=== PATIENT | male | born 1965 | race Caucasian/White ===

== ENCOUNTER 2022-11-25 08:48 | Emergency (ER) | payer OTHER, SELFPAY ==
[2022-11-25 08:57] VITALS: BP 143/81; PULSE 79; RESP 16; TEMP 36.9; O2SAT 97
--- NOTE | 2022-11-25 09:15 | ED.URI ---
HPI - URI/Sore Throat General Chief Complaint: Upper Respiratory Infection Stated Complaint: Sore Throat/Cough Time Seen by Provider: 11/25/22 09:15 Source: patient, RN notes reviewed and old records reviewed Mode of arrival: ambulatory Limitations: no limitations History of Present Illness HPI Narrative: 57 year old male who presents to [facility] care with complaints of sinus congestion and drainage which started on Monday.Patient reports that he does have some sore throat discomfort especially to right side of his throat and has an occasional cough. Patient reports that he has not had a known fever, chills or sweats or body aches.Patient reports that he has not had any known ill contacts. MD elicited complaint: cough, sore throat, rhinorrhea and nasal congestion Onset (ago): day(s) (4) Pain scale (0-10): 3 Description of mucous: clear Able to tolerate fluids by mouth: Yes Exacerbating factors: swallowing Associated symptoms: rhinorrhea, nasal congestion and sore throat Treatments prior to arrival: other (sinus medication) Related Data Home Medications Medication Instructions Recorded Confirmed atorvastatin 40 mg tablet 40 mg PO DAILY 11/25/22 11/25/22 candesartan 8 mg tablet 8 mg PO DAILY 11/25/22 11/25/22 levothyroxine 112 mcg tablet 112 mcg PO DAILY 11/25/22 11/25/22 (Synthroid) triamcinolone acetonide 0.5 % 1 applic topical DAILY 11/25/22 11/25/22 topical cream Allergies Allergy/AdvReac Type Severity Reaction Status Date / Time No Known Allergies Allergy Verified 11/25/22 09:21 Review of Systems Review of Systems: CONSTITUTIONAL: Denies malaise, chills, sweats, or fever. EYES: Denies visual changes, redness, or discharge. ENT: Reports rhinorrhea, congestion, sinus pain, no otalgia positive for sore throat. CARDIOVASCULAR: Denies chest pain, palpitations, or edema. RESPIRATORY: Reports cough.? Denies dyspnea. GASTROINTESTINAL: Denies abdominal pain, nausea, vomiting, diarrhea SKIN: Denies rash or itching. MUSCULOSKELETAL: Denies myalgia. NEUROLOGIC: Denies headache. All systems reviewed & are unremarkable except as noted in HPI and below PMFSH Past Medical History Medical History (Updated 11/25/22 @ 09:49 by Rafia L. Eric, [employer] MACHINE OPERATOR) Elevated serum cholesterol Hypertension Hypothyroidism Family History Family History (Updated 11/25/22 @ 09:28 by Rafia Reyes NP) Other Hypertension Social History Social History (Updated 11/25/22 @ 09:28 by Rafia Reyes NP) Smoking status: Never smoker Alcohol intake: current Alcohol use details: rare social Substance use type: does not use Living arrangements: with family Gender identity (if verbalized by the patient): Male Comments At time of signature, agree with nursing past medical, surgical, social and family history. There is no relevant family history pertinent to the presenting complaint Exam Narrative: GENERAL: Well-appearing, well-nourished, and in no acute distress. HEAD: Normocephalic EYES: PERRLA, conjunctivae clear ENT: Nares clear, turbinates edematous and erythematous, clear discharge. Mucous membranes moist. TM pearly marcus with dull light reflex bilaterally; no tragal tenderness. Oropharynx erythematous without lesions. Tonsils red enlarged and without exudate, no drooling, no hoarseness, no trismus, uvula midline.post nasal drainage noted NECK: Supple. lymphadenopathy CHEST: Clear to auscultation, breath sounds equal. No wheezing, rhonchi, rales, or stridor. No respiratory distress, speaks in full sentences. cough noted SAO2 97% on room air HEART: Regular rate and rhythm. No murmur heard. SKIN: Warm, dry, no rash. NEURO: Alert and oriented x3. PSYCH: Normal mood and affect Course Course Emergency Course: Patient is aware of diagnosis, understands and agrees to treatment plan.? Anticipatory guidance given.? Patient agrees to follow-up as directed and is aware of reasons to seek
== END 2022-11-25 09:40 | disposition home or self-care (01) ==
PROVIDERS: Emergency Provider Registered Nurse
DX: J02.0 Streptococcal pharyngitis (principal); I10 Essential (primary) hypertension; E03.9 Hypothyroidism, unspecified
CPT/HCPCS: 87880; 99213; G0463

== ENCOUNTER 2023-01-19 08:25 | Emergency (ER) | payer OTHER, SELFPAY ==
--- NOTE | 2023-01-19 08:29 | ED.URI ---
HPI - URI/Sore Throat General Chief Complaint: Upper Respiratory Infection Stated Complaint: sore throat/fever/cough Time Seen by Provider: 01/19/23 08:25 Source: patient and RN notes reviewed History of Present Illness HPI Narrative: Patient is a 57-year-old male who presents to urgent care with complaints of fever, sore throat, mucus production and cough for the last week. Patient states he has also had chills and some wheezing. Patient states that he had strep last month. Patient has been taking Benadryl and Tylenol for symptom relief. No other acute complaints. No acute distress noted. Patient aware of the plan of care. Some parts of this dictation were generated by voice recognition software and may contain typographical and/or grammatical inaccuracies. Related Data Home Medications Medication Instructions Recorded Confirmed atorvastatin 40 mg tablet 40 mg PO DAILY 11/25/22 01/19/23 candesartan 8 mg tablet 8 mg PO DAILY 11/25/22 01/19/23 levothyroxine 112 mcg tablet 112 mcg PO DAILY 11/25/22 01/19/23 (Synthroid) Allergies Allergy/AdvReac Type Severity Reaction Status Date / Time No Known Allergies Allergy Verified 01/19/23 08:44 Review of Systems Review of Systems: CONSTITUTIONAL: Reports fever and chills EYES: Denies visual changes, redness, or discharge. ENT: Denies rhinorrhea, congestion, otalgia. Reports of sore throat CARDIOVASCULAR: Denies chest pain, palpitations, or edema. RESPIRATORY: Reports of productive cough without dyspnea GASTROINTESTINAL: Denies abdominal pain, nausea, vomiting, or diarrhea. GENITOURINARY: Denies dysuria or hematuria. SKIN: Denies rash or itching. MUSCULOSKELETAL: Denies back pain, joint pain, or myalgia. NEUROLOGIC: Denies headache, numbness, or weakness. All other systems reviewed are negative, except as documented in HPI. [facility] Past Medical History Medical History (Updated 01/19/23 @ 09:03 by JANNETH Becerra) Elevated serum cholesterol Hypertension Hypothyroidism Family History Family History (Updated 11/25/22 @ 09:28 by Rafia Reyes NP) Other Hypertension Social History Social History (Updated 11/25/22 @ 09:28 by Rafia Reyes NP) Smoking status: Never smoker Alcohol intake: current Alcohol use details: rare social Substance use type: does not use Living arrangements: with family Gender identity (if verbalized by the patient): Male Comments At the time of my signature, I reviewed and agree with the nursing past medical, surgical, social, and family history. There is no relevant family history pertinent to the patient complaint. Exam Narrative: GENERAL: This is a well-nourished, well-developed patient, in no apparent distress. HEAD: normocephalic, atraumatic. EYES: PERRL. Sclera clear/white. Vision is grossly intact. EARS: External ears normal, auditory canals clear and without drainage, TMs normal without perforation. Hearing grossly intact. NOSE: External nose normal with no obvious nasal discharge, nares without redness, no rhinorrhea. THROAT: Mucous membranes moist, erythema posterior pharynx with moderate postnasal drainage NECK: Neck supple, non-tender without lymphadenopathy CARDIOVASCULAR: Regular rate and rhythm without murmurs, gallops, or rubs. RESPIRATORY: Slight crackles throughout SKIN: warm, intact with no suspicious lesions or rash, good texture and turgor. NEURO: awake, alert, and oriented to person, place and time. There were no obvious focal neurologic abnormalities. EXTREMITIES: No clubbing, cyanosis, or edema. Course Course Level of Care: Express Care Visit Vital Signs Vital signs: Vital Signs Temperature 98.7 F 01/19/23 08:41 Pulse Rate 85 01/19/23 08:41 Respiratory Rate 20 01/19/23 08:41 Blood Pressure 126/80 01/19/23 08:41 Pulse Oximetry 100 01/19/23 08:41 Oxygen Delivery Room Air 01/19/23 08:41 Temperature 98.7 F 01/19/23 08:41 Pulse Rate
[2023-01-19 08:41] VITALS: BP 126/80; PULSE 85; RESP 20; TEMP 37.1; O2SAT 100
== END 2023-01-19 09:05 | disposition home or self-care (01) ==
PROVIDERS: Emergency Provider Nurse Practitioner Family
DX: J02.0 Streptococcal pharyngitis (principal); I10 Essential (primary) hypertension; E03.9 Hypothyroidism, unspecified
CPT/HCPCS: 87880; 99213; G0463